=== PATIENT | male | born 1995 | race Two or more races ===

== ENCOUNTER 2021-01-23 15:27 | Emergency (ER) | payer OTHER ==
[~2021-01-23] VITALS: Ht 170.2 cm; Wt 74.8 kg
== END 2021-01-23 18:10 | disposition home or self-care (01) ==
LOC: ER 15:27
DX: T20.17XA Burn of first degree of neck, initial encounter (principal); X10.2XXA Contact with fats and cooking oils, initial encounter; Y93.89 Activity, other specified; Y92.010 Kitchen of single-family (private) house as the place of occurrence of the external cause; Y99.8 Other external cause status